=== PATIENT | male | born 1955 | race Caucasian/White ===

== ENCOUNTER 2016-05-14 08:31 | Emergency (ER) | payer SELFPAY ==
[~2016-05-14] VITALS: Ht 177.8 cm; Wt 77.6 kg
[2016-05-14 10:40] VITALS: BP 132/88
== END 2016-05-14 11:06 | disposition home or self-care (01) ==
LOC: ER 08:31
DX: S46.911A Strain of unspecified muscle, fascia and tendon at shoulder and upper arm level, right arm, initial encounter (principal); V49.49XA Driver injured in collision with other motor vehicles in traffic accident, initial encounter; Y93.89 Activity, other specified; Y99.8 Other external cause status; Y92.828 Other wilderness area as the place of occurrence of the external cause
CPT/HCPCS: 73030; 93005

== ENCOUNTER 2020-10-26 09:05 | Emergency (ER) | payer OTHER ==
[~2020-10-26] VITALS: Ht 177.8 cm; Wt 72.6 kg
[2020-10-26 09:50] LABS: Basophils # (auto) 0.1 10 ^3/uL (0-0.2); Basophils % (auto) 1.4 % (0.0-2.0); Eosinophils # (auto) 0.2 10 ^3/uL (0-0.8); Eosinophils % (auto) 3.4 % (0.0-7.0); Hematocrit 41.1 % (41.0-53.0); Hemoglobin 14.3 g/dL (13.5-17.5); Lymphocytes # (auto) 1.3 10 ^3/uL (0.4-5.4); Lymphocytes % (auto) 27.8 % (10.0-50.0); Mean Corpuscular Hemoglobin 30.2 pg (28.0-32.0); Mean Corpuscular Hgb Conc. 34.9 g/dL (32.0-36.0); Mean Corpuscular Volume 86.6 fL (80.0-100.0); Monocytes # (auto) 0.4 10 ^3/uL (0-1.3); Monocytes % (auto) 8.7 % (0.0-12.0); Neutrophils # (auto) 2.8 10 ^3/uL (1.6-8.6); Neutrophils % (auto) 58.7 % (37.0-80.0); Red Blood Cells 4.75 10^6/uL (4.5-5.90); Red Cell Distribution Width 13.5 % (11.8-14.3); White Blood Cell 4.7 10^3/uL (4.4-10.8)
[2020-10-26] MEDS ORDERED: ONDANSETRON HCL 4 MG/2 ML VIAL IV ONE (10:00)
[2020-10-26] MEDS ORDERED: MORPHINE SULFATE 4 MG/ML SYR/VIAL IV ONE (10:00)
[2020-10-26 10:10] LABS: Albumin 3.8 g/dL (3.4-5.0); Anion Gap 7 (5-15); Blood Urea Nitrogen 29 mg/dL (7-18); Calcium 9.3 mg/dL (8.5-10.1); Carbon Dioxide 26 mmol/L (21-32); Chloride 104 mmol/L (98-107); Glucose 117 mg/dL (74-106); Potassium 4.2 mmol/L (3.5-5.1); Sodium 137 mmol/L (136-145)
[2020-10-26 10:15] LABS: Alanine Aminotransferase 48 U/L (16-61); Alkaline Phosphatase 124 U/L (45-117); Aspartate Aminotransferase 37 U/L (15-37); BUN/Creatinine Ratio 32.6; Bilirubin, Total 0.7 mg/dL (0.2-1.0); GFR African American 111 mL/min; GFR Non-African American 91 mL/min; Total Protein 7.1 g/dL (6.4-8.2)
[2020-10-26] MEDS ORDERED: LORazepam 2MG/ML-1ML VIAL IV ONE (10:30)
[2020-10-26] MEDS ORDERED: LORazepam 2MG/ML-1ML VIAL ONE (10:32)
[2020-10-26 12:07] VITALS: BP 130/76
== END 2020-10-26 12:26 | disposition home or self-care (01) ==
LOC: ER 09:05
DX: S92.001A Unspecified fracture of right calcaneus, initial encounter for closed fracture (principal); R07.89 Other chest pain; M54.2 Cervicalgia; M79.10 Myalgia, unspecified site; I10 Essential (primary) hypertension; I48.91 Unspecified atrial fibrillation; Z88.0 Allergy status to penicillin; W01.0XXA Fall on same level from slipping, tripping and stumbling without subsequent striking against object, initial encounter; Y93.89 Activity, other specified; Y92.89 Other specified places as the place of occurrence of the external cause; Y99.8 Other external cause status
CPT/HCPCS: 29515; 36415; 70450; 71045; 72125; 73610; 80053; 84484; 85025; 93005; 96374; 96375; 99285; J2060; J2270; J2405